=== PATIENT | female | born 1940 | race Caucasian/White ===

== ENCOUNTER 2022-12-24 09:26 | Inpatient (IN) | payer BC ==
[~2022-12-24] VITALS: Ht 165.1 cm; Wt 103.2 kg
[2022-12-24] MEDS ORDERED: ACETAMINOPHEN 500 MG TABLET ONE (09:37)
[2022-12-24] MEDS ORDERED: oxyCODONE HCL 10 MG TAB.ER.12H PO ONE (09:38)
[2022-12-24] MEDS ORDERED: GABAPENTIN 300 MG CAPSULE ONE (09:39)
[2022-12-24] MEDS ORDERED: CEFAZOLIN SOD 2 GM in D5W 50 ML IV ONE (09:45)
[2022-12-24] MEDS ORDERED: KETOROLAC TROMETHAMINE 30 MG VIAL ONE (10:50)
[2022-12-24] MEDS ORDERED: LIDOCAINE 2%, 20 ML MDV ONE (10:50)
[2022-12-24] MEDS ORDERED: NS 1000 ML IV.SOLN IV ONE (10:50)
[2022-12-24] MEDS ORDERED: fentaNYL CITRATE/PF 100 MCG/2 ML AMP ONE (10:50)
[2022-12-24] MEDS ORDERED: WATER FOR IRRIGATION,STERILE 1,000 ML IRRIG.SOLN IR ONE (10:50)
[2022-12-24] MEDS ORDERED: DESFLURANE 15 MIN GAS INH ONE (10:50)
[2022-12-24] MEDS ORDERED: MIDAZOLAM HCL/PF 2 MG/2 ML SYRINGE ONE (10:50)
[2022-12-24] MEDS ORDERED: LR 1,000 ML IV.SOLN IV ONE (10:50)
[2022-12-24] MEDS ORDERED: ONDANSETRON HCL 4 MG/2 ML VIAL ONE (10:50)
[2022-12-24] MEDS ORDERED: TRANEXAMIC ACID 1,000 MG/10 ML VIAL ONE (10:50)
[2022-12-24] MEDS ORDERED: PROPOFOL 200MG/ 20ML VIAL (DIPRIVAN) IV ONE (10:50)
[2022-12-24] MEDS ORDERED: BUPIVACAINE /PF 0.25% 30 ML VIAL INJ ONE (10:50)
[2022-12-24] MEDS ORDERED: NS IRRIG SOLN 1000 ML IR ONE (10:50)
[2022-12-24] MEDS ORDERED: VANCOMYCIN HCL 1000 MG/VIAL IV ONE (10:50)
[2022-12-24] MEDS ORDERED: ROCURONIUM BROMIDE 10 MG/ML (ZEMURON) ONE (10:50)
[2022-12-24] MEDS ORDERED: SUGAMMADEX SODIUM 200 MG/2 ML VIAL IV ONE (10:50)
[2022-12-24] MEDS ORDERED: HYDROmorphone 1 MG/ML INJ. CARTRIDGE IVP PRN ×5 (11:00→12:00)
[2022-12-24] MEDS ORDERED: LORATADINE 10 MG TABLET PO PRN (11:00)
[2022-12-24] MEDS ORDERED: oxyCODONE HCL 5 MG TABLET PO PRN (11:00)
[2022-12-24] MEDS ORDERED: traMADol HCL HCL 50 MG TABLET (ULTRAM) PO PRN (11:00)
[2022-12-24] MEDS ORDERED: ONDANSETRON HCL 4 MG/2 ML VIAL IVP PRN (11:45)
[2022-12-24] MEDS ORDERED: MIDAZOLAM HCL 2 MG/2 ML VIAL (VERSED) IVP PRN (12:00)
[2022-12-24] MEDS ORDERED: MEPERIDINE HCL/PF 25 MG/ML DISP.SYRIN IVP PRN (12:00)
[2022-12-24] MEDS ORDERED: METOCLOPRAMIDE HCL 10 MG/2 ML VIAL IVP PRN ×2 (12:00→13:30)
[2022-12-24] MEDS ORDERED: hydrALAZINE HCL 20 MG/ML VIAL IVP PRN (12:00)
[2022-12-24] MEDS ORDERED: LR 1,000 ML IV SCH (12:00)
[2022-12-24] MEDS ORDERED: LABETALOL 100 MG/ 20ML VIAL IVP PRN (12:00)
[2022-12-24] MEDS ORDERED: AMLO5TAB4 PO (12:44)
[2022-12-24] MEDS ORDERED: GLIM1TAB PO (12:44)
[2022-12-24] MEDS ORDERED: OMEP20CA15 PO (12:44)
[2022-12-24] MEDS ORDERED: FEXO180T94 PO (12:44)
[2022-12-24] MEDS ORDERED: ROSU40TA PO (12:44)
[2022-12-24] MEDS ORDERED: LOSA50TA3 PO (12:44)
[2022-12-24] MEDS ORDERED: AMYL1CAP58 PO (12:44)
[2022-12-24] MEDS ORDERED: HYDR-3927 PO (12:44)
[2022-12-24] MEDS ORDERED: GABA300S PO (12:44)
[2022-12-24] MEDS ORDERED: ACET325T53 PO (12:44)
[2022-12-24] MEDS ORDERED: LACTULOSE 20 GM/30 ML UDC PO PRN (13:30)
[2022-12-24] MEDS ORDERED: DIPHENHYDRAMINE HCL 25 MG CAPSULE PO PRN (13:30)
[2022-12-24] MEDS ORDERED: NALOXONE HCL 0.4 MG/ML AMP (NARCAN) IVP PRN ×3 (13:30)
[2022-12-24] MEDS ORDERED: BISACODYL 10 MG/SUPPOSITORY RC PRN (13:30)
[2022-12-24] MEDS: HYDROmorphone 1 MG/ML INJ. CARTRIDGE ONE ×2 (14:20→14:28)
[2022-12-24] MEDS: ceFAZolin SODIUM 2 GM in D5W 100 ML IV SCH ×2 (15:00→22:51)
[2022-12-24 16:04] VITALS: BP_SYST 173; PULSE 84; RESP 18; TEMP 98.2
[2022-12-24 16:14] VITALS: BP_SYST 173; PULSE 84; RESP 18; TEMP 98.2
[2022-12-24] MEDS: KETOROLAC TROMETHAMINE 10 MG TABLET (TORADOL) PO SCH ×2 (16:44→21:41)
[2022-12-24 20:00] VITALS: BP_SYST 144; PULSE 84; RESP 18; TEMP 97.5; O2SAT 97
[2022-12-24] MEDS: oxyCODONE HCL 5 MG TABLET PO PRN (20:46)
[2022-12-24] MEDS: SENNOSIDES/DOCUSATE SODIUM 1 TAB TABLET(SENOKOT-S) PO SCH (20:47)
[2022-12-24] MEDS: ACETAMINOPHEN 500 MG TABLET PO SCH (21:41)
[2022-12-25 00:32] VITALS: BP_SYST 139; PULSE 73; RESP 19; TEMP 97; O2SAT 95
[2022-12-25] MEDS: oxyCODONE HCL 5 MG TABLET PO PRN ×4 (00:53→16:35)
[2022-12-25 05:52] LABS: HEMATOCRIT 39.2 % (36-48); HEMOGLOBIN 12.8 g/dL (12.0-16.0)
[2022-12-25] MEDS: KETOROLAC TROMETHAMINE 10 MG TABLET (TORADOL) PO SCH (06:01)
[2022-12-25] MEDS: ceFAZolin SODIUM 2 GM in D5W 100 ML IV SCH (06:02)
[2022-12-25] MEDS: ACETAMINOPHEN 500 MG TABLET PO SCH ×2 (06:02→14:42)
[2022-12-25 06:28] LABS: ALANINE AMINOTRANSFERASE 17 U/L (12-78); ANION GAP 12 (5-15); ASPARTATE AMINOTRANSFERASE 27 U/L (10-37); CALCIUM 9.2 mg/dL (8.4-11.0); CHLORIDE 103 mmol/L (98-107); CREATININE 0.83 mg/dL (0.55-1.30); GLUCOSE 153 mg/dL (74-106); TOTAL BILIRUBIN 0.5 mg/dL (0.0-1.0); UREA NITROGEN, BLOOD 17 mg/dL (8-21)
[2022-12-25 08:00] VITALS: BP_SYST 194; PULSE 93; RESP 20; TEMP 97.9; O2SAT 92; O2SAT 96
[2022-12-25] MEDS: SENNOSIDES/DOCUSATE SODIUM 1 TAB TABLET(SENOKOT-S) PO SCH (09:32)
[2022-12-25] MEDS ORDERED: D5W 1,000 ML IV PRN (09:45)
[2022-12-25] MEDS ORDERED: LOSARTAN POTASSIUM 50 MG TABLET (COZAAR) PO ONE (09:45)
[2022-12-25] MEDS ORDERED: GLUCOSE (DEXTROSE) ORAL GEL -Adults PO PRN (09:45)
[2022-12-25] MEDS ORDERED: amLODIPine BESYLATE 5 MG TABLET PO ONE (09:45)
[2022-12-25] MEDS ORDERED: INSULIN REGULAR, HUMAN 100 UNITS/ML, 3 ML VIAL (humuLIN R) SUBCUT PRN (09:45)
[2022-12-25] MEDS ORDERED: LORazepam 1 MG TABLET PO PRN (09:45)
[2022-12-25] MEDS ORDERED: DEXTROSE 50% JECT 50 ML DISP.SYRIN IVP PRN (09:45)
[2022-12-25] MEDS ORDERED: CELECOXIB 200 MG CAPSULE PO SCH (11:00)
[2022-12-25 11:30] VITALS: BP_SYST 146; PULSE 76; RESP 20; TEMP 98; O2SAT 96
[2022-12-25 12:00] VITALS: BP_SYST 153; PULSE 83; RESP 16; TEMP 97.6; O2SAT 96
[2022-12-25 16:00] VITALS: BP_SYST 156; PULSE 81; RESP 16; TEMP 97.2; O2SAT 96
[2022-12-25 16:46] VITALS: BP_SYST 156; PULSE 82; RESP 16; TEMP 97.2; O2SAT 98
[2022-12-26] MEDS ORDERED: amLODIPine BESYLATE 5 MG TABLET PO SCH (09:00)
[2022-12-26] MEDS ORDERED: LOSARTAN POTASSIUM 50 MG TABLET (COZAAR) PO SCH (09:00)
== END 2022-12-25 17:25 | disposition home or self-care (01) | DRG 483 ==
LOC: SMU 09:26
PROVIDERS: ADMIT Orthopaedic Surgery Sports Medicine; ATTEND Orthopaedic Surgery Sports Medicine
PROC: 0LS40ZZ Reposition Left Upper Arm Tendon, Open Approach (ICD-10-PCS; 2022-12-24)
PROC: 0RRK00Z Replacement of Left Shoulder Joint with Reverse Ball and Socket Synthetic Substitute, Open Approach (ICD-10-PCS; principal; 2022-12-24 11:00)
DX: M13.812 Other specified arthritis, left shoulder (principal)
CPT/HCPCS: 36415; 76001; 80053; 83051; 85014; 87081; 88305; 88311; 96379; 97116-GP; 97163-GP; 97530-GP; C1776; J0690; J1170; J1815; J1885; J2001; J2405; J2704; J3010; J3370; J3465; J3490; J7030; J7060; J7120

== ENCOUNTER 2023-09-05 18:32 | Emergency (ER) | payer BC, MEDICAID ==
[~2023-09-05] VITALS: Ht 165.1 cm; Wt 104.3 kg
[~2023-09-05 18:32] MED LIST: ACET325T53 PO; AMLO5TAB4 PO; AMYL1CAP58 PO; FEXO180T94 PO; GABA300S4 PO; GLIM1TAB PO; HYDR-3927 PO; LOSA-413 PO; OMEP20CA15 PO; ROSU40TA PO
[2023-09-05 18:56] VITALS: BP_SYST 183; PULSE 88; RESP 21; TEMP 97.5; O2SAT 96
[2023-09-05 19:45] LABS: BASOPHILS # (AUTO) 0.1 K/uL (0.0-0.2); BASOPHILS % (AUTO) 0.7 % (0.0-2.0); EOSINOPHILS # (AUTO) 0.1 K/uL (0.0-0.4); EOSINOPHILS % (AUTO) 0.7 % (0.0-4.0); HEMATOCRIT 42.7 % (36-48); HEMOGLOBIN 14.5 g/dL (12.0-16.0); LYMPHOCYTES # (AUTO) 1.6 K/uL (1.0-5.5); MEAN CORPUSCULAR HEMOGLOBIN 30 pg (27-31); MEAN CORPUSCULAR HGB CONC 34 % (32-36); MEAN CORPUSCULAR VOLUME 87 fL (79.0-98.0); MONOCYTES # (AUTO) 0.6 K/uL (0.0-1.0); MONOCYTES % (AUTO) 5.3 % (1.7-9.3); NEUTROPHILS # (AUTO) 8.6 K/uL (1.8-7.7); NEUTROPHILS % (AUTO) 78.3 % (40.0-70.0); PLATELET COUNT (AUTO) 257 K/uL (130-430); RED BLOOD CELL COUNT(AUTO) 4.89 MIL/uL (4.2-6.2); RED CELL DISTRIBUTION WIDTH 13.7 % (9.0-15.0); WHITE BLOOD COUNT (AUTO) 10.9 K/uL (4.8-10.8)
[2023-09-05] MEDS: ONDANSETRON HCL 4 MG/2 ML VIAL IVP ONE (19:51)
[2023-09-05] MEDS: MORPHINE 2 MG/ML INJ. SYRINGE IVP ONE ×2 (19:52→22:27)
[2023-09-05 20:38] LABS: ALANINE AMINOTRANSFERASE 35 U/L (12-78); ALBUMIN 3.4 g/dL (3.4-4.8); ANION GAP 14 (5-15); ASPARTATE AMINOTRANSFERASE 44 U/L (10-37); CARBON DIOXIDE 20 mmol/L (23-29); CHLORIDE 99 mmol/L (98-107); CREATININE 0.76 mg/dL (0.55-1.30); GLUCOSE 192 mg/dL (74-106); POTASSIUM 4.1 mmol/L (3.5-5.1); SODIUM SERUM 133 mmol/L (136-145); TOTAL BILIRUBIN 0.8 mg/dL (0.0-1.0); TOTAL PROTEIN, SERUM 7.6 g/dL (6.4-8.3); UREA NITROGEN, BLOOD 14 mg/dL (8-21)
[2023-09-05 20:41] LABS: AMYLASE 17 U/L (0-100); BILIRUBIN,DIRECT 0.1 mg/dL (0.0-0.3); LACTATE DEHYDROGENASE 330 U/L (81-234); LIPASE 34 U/L (16-77)
[2023-09-05 21:59] LABS: BILIRUBIN,URINE NEGATIVE (NEGATIVE); BLOOD, URINE NEGATIVE (NEGATIVE); CLARITY/URINE CLEAR (CLEAR); COLOR,URINE YELLOW (YELLOW); GLUCOSE,URINE NEGATIVE (NEGATIVE); KETONES,URINE TRACE (NEGATIVE); LEUKOCYTE ESTERASE ,URINE NEGATIVE (NEGATIVE); NITRITE, URINE NEGATIVE (NEGATIVE); PROTEIN URINE 2+ (NEGATIVE); UROBILINOGEN,URINE 0.2 (0.2-1.0)
[2023-09-05] MEDS ORDERED: IBUP-1969 PO (22:01)
[2023-09-05] MEDS ORDERED: HYDR-3917 PO (22:01)
[2023-09-05 22:23] LABS: BACTERIA,URINE RARE /HPF (None Seen)
[2023-09-05] MEDS: ONDANSETRON 4 MG ODT TAB PO ONE (22:30)
[2023-09-05 22:47] VITALS: BP_SYST 131; PULSE 81; RESP 18; TEMP 97.5; O2SAT 98
== END 2023-09-05 22:47 | disposition home or self-care (01) ==
LOC: SED 18:32
DX: R10.13 Epigastric pain (principal); E11.9 Type 2 diabetes mellitus without complications; I10 Essential (primary) hypertension; E78.00 Pure hypercholesterolemia, unspecified; Z85.038 Personal history of other malignant neoplasm of large intestine; Z79.899 Other long term (current) drug therapy
CPT/HCPCS: 99285; 74176; 96374; 96375; 80076; 80048; 81001; 82150; 83615; 83690; 85025; 85610; 85730; 84484; 36415; 96376; 83605; 82397; 81000; 81015; J2405; J2270

== ENCOUNTER 2024-01-13 08:26 | Inpatient (IN) | payer BC, MEDICAID ==
[~2024-01-13] VITALS: Ht 165.1 cm; Wt 102.1 kg
[~2024-01-13 08:26] MED LIST changes: +CEFAZOLIN SOD 2 GM in D5W 50 ML IV ONE; +HYDR-3917 PO; +IBUP-1969 PO
[2024-01-13] MEDS: ACETAMINOPHEN 500 MG TABLET PO ONE (09:14)
[2024-01-13] MEDS: ACETAMINOPHEN 500 MG TABLET ONE (09:14)
[2024-01-13] MEDS ORDERED: ceFAZolin SODIUM 1 GM VIAL ONE (10:40)
[2024-01-13] MEDS ORDERED: HYDROmorphone 1 MG/ML INJ. CARTRIDGE IVP PRN ×2 (11:45)
[2024-01-13] MEDS ORDERED: LR 1,000 ML IV SCH (11:45)
[2024-01-13] MEDS ORDERED: METOCLOPRAMIDE HCL 10 MG/2 ML VIAL IVP PRN (11:45)
[2024-01-13] MEDS ORDERED: hydrALAZINE HCL 20 MG/ML VIAL IVP PRN (11:45)
[2024-01-13] MEDS ORDERED: MEPERIDINE HCL/PF 25 MG/ML DISP.SYRIN IVP PRN (11:45)
[2024-01-13] MEDS ORDERED: LABETALOL 100 MG/ 20ML VIAL IVP PRN (11:45)
[2024-01-13] MEDS ORDERED: PSYL822P20 (12:54)
[2024-01-13] MEDS ORDERED: LOVA40TA75 PO (12:59)
[2024-01-13] MEDS ORDERED: HYDR25TA86 PO (12:59)
[2024-01-13 13:05] VITALS: O2SAT 96
[2024-01-13] MEDS: LABETALOL HCL 20 MG/4 ML CARTRIDGE IVP ONE (13:44)
[2024-01-13] MEDS: HYDROmorphone 1 MG/ML INJ. CARTRIDGE ONE ×2 (14:01→16:07)
[2024-01-13] MEDS: CEFEPIME 1 GM in D5W 50 ML IV SCH (15:30)
[2024-01-13 17:06] VITALS: BP_SYST 150; PULSE 87; RESP 16
== END 2024-01-13 18:05 | disposition home or self-care (01) | DRG 483 ==
LOC: SMU 08:26
PROVIDERS: ADMIT Orthopaedic Surgery Sports Medicine; ATTEND Orthopaedic Surgery Sports Medicine
PROC: 0LS30ZZ Reposition Right Upper Arm Tendon, Open Approach (ICD-10-PCS; 2024-01-13)
PROC: 0RRJ0JZ Replacement of Right Shoulder Joint with Synthetic Substitute, Open Approach (ICD-10-PCS; principal; 2024-01-13 10:00)
DX: M19.011 Primary osteoarthritis, right shoulder (principal); M75.21 Bicipital tendinitis, right shoulder
CPT/HCPCS: 76000; 82948; 87081; 88304; 88311; C1776; J0690; J0692; J1170; J2405; J2704; J3010; J3490; J7060; J7120